=== PATIENT | female | born 1985 | race Caucasian/White ===

== ENCOUNTER → 2019-06-29 | Emergency (ER) | payer MEDICAID ==
[~2019-06-29] VITALS: Ht 167.6 cm; Wt 79.5 kg
[~2019-06-29] MED LIST: ALBU18HF2 INH; CefTRIAXone/D5W-Rocephin 1gm 50 ML IV ONE; DEC4T PO; IBUP-1984 PO; LORA0.5T PO; NO HOME MEDS; PHEN-824 PO; PRED20TA PO; SULF1TAB49 PO; ketorolac tromethamine 15mg/ml inj. IV ONE; normal saline 1000ML IV soln IVB ONE
--- NOTE | 2019-06-29 10:35 | NUR ---
Pt unable to provide urine sample at this time.
[2019-06-29 11:44] LABS: CLARITY,URINE CLOUDY (Clear); COLOR,URINE STRAW (Yellow); GLUCOSE, URINE NEGATIVE (Neg); KETONES,URINE NEGATIVE (Neg); LEUKOCYTE ESTERASE ,URINE NEGATIVE (Neg); NITRITES, URINE POSITIVE (Neg); OCCULT BLOOD,URINE TRACE-LYSED (Neg); PH,URINE 7.5 (4.8-8.0); PROTEIN,URINE NEGATIVE (Neg); UROBILINOGEN,URINE 0.2 E.U/dL (0.2-1.0)
[2019-06-29 11:47] LABS: BASOPHILS % (AUTO) 0.3 % (0-1); EOSINOPHILS # (AUTO) 0.2 X10'3 (0-0.9); HEMATOCRIT 41.2 % (35.0-45.0); HEMOGLOBIN 13.4 g/dl (12.0-16.0); LYMPHOCYTES # (AUTO) 1.4 X10'3 (1.1-4.8); LYMPHOCYTES % (AUTO) 13.1 % (21-51); MEAN CORPUSCULAR HEMOGLOBIN 31.7 PG (27.0-31.0); MEAN CORPUSCULAR HGB CONC 32.6 g/dL (33.0-36.5); MEAN CORPUSCULAR VOLUME 97.2 FL (78-98); MEAN PLATELET VOLUME 7.3 FL (7.4-10.4); MONOCYTES # (AUTO) 0.8 X10'3 (0-0.9); MONOCYTES % (AUTO) 7.5 % (2-12); NEUTROPHILS # (AUTO) 8.3 X10'3 (1.8-7.7); NEUTROPHILS % (AUTO) 77.1 % (42-75); PLATELET COUNT 297 X10'3 (140-440); RED BLOOD COUNT 4.24 X10'6 (4.20-5.60); RED CELL DISTRIBUTION WIDTH 14.1 % (11.5-14.5); WHITE BLOOD COUNT 10.7 X10'3 (4.5-11.0)
[2019-06-29 11:49] LABS: URINE HCG NEGATIVE (NEG)
[2019-06-29 11:51] LABS: URINE AMPHETAMINE SCREEN POSITIVE (Neg); URINE BARBITUATE SCREEN NEGATIVE (Neg); URINE BENZODIAZEPINES SCREEN NEGATIVE (Neg); URINE CANNABINOID SCREEN NEGATIVE (Neg); URINE COCAINE SCREEN NEGATIVE (Neg); URINE METHADONE SCREEN NEGATIVE (Neg); URINE OPIATE SCREEN NEGATIVE (Neg); URINE PHENCYCLIDINE SCREEN NEGATIVE (Neg)
[2019-06-29 11:52] LABS: UA COLLECTION TYPE CLN CATCH MIDSTREAM
[2019-06-29 11:56] LABS: ALANINE AMINOTRANSFERASE 18 U/L (12-78); ALBUMIN 3.5 G/DL (3.4-5.0); ALKALINE PHOSPHATASE 100 IU/L (46-116); ANION GAP 6 (8-16); ASPARTATE AMINO TRANSFERASE 13 U/L (10-37); BILIRUBIN,TOTAL 0.3 MG/DL (0.1-1.0); BLOOD UREA NITROGEN 7 MG/DL (7-18); BUN/CREATININE RATIO 8.8 (6.6-38.0); CALCIUM 8.4 MG/DL (8.5-10.1); CHLORIDE 105 MMOL/L (99-107); GLUCOSE 95 MG/DL (70-104); LIPASE 120 U/L (73-393); POTASSIUM 3.8 MMOL/L (3.5-5.1); SODIUM 140 MMOL/L (135-145); TOTAL CARBON DIOXIDE 28.7 MMOL/L (24-32); TOTAL PROTEIN 6.9 G/DL (6.4-8.2); eGFR 82 ML/MIN
[2019-06-29 11:59] LABS: MUCUS STRANDS MODERATE /LPF (Neg)
[2019-06-29 12:01] LABS: BACTERIA,URINE 4+ /HPF (Neg); RBC,URINE 0-2 /HPF (0-2); SQUAMOUS EPITHELIAL CELL,UR MODERATE /LPF (FEW)
--- NOTE | 2019-06-29 13:27 | NUR ---
Pt's IV access is in the AC and when she bends the arm, the IV fluid infusion stops. Pt's fluid and antibiotics have not completed. Discharge pending upon completion of above medications.
[2019-06-29 13:43] VITALS: BP 145/92
== END | disposition home or self-care (01) ==
LOC: ER 09:58
DX: R51 Headache (principal); N39.0 Urinary tract infection, site not specified; M54.5 Low back pain; F15.90 Other stimulant use, unspecified, uncomplicated; Z88.5 Allergy status to narcotic agent; Z79.899 Other long term (current) drug therapy
CPT/HCPCS: 36415; 80053; 80305; 81001; 81025; 83690; 85025; 87077; 87088; 87186; 96365; 96375; 99284; J0696; J1885; J7030

== ENCOUNTER 2019-09-02 | Emergency (ER) | payer MEDICAID ==
[~2019-09-02] VITALS: Ht 167.6 cm; Wt 79.5 kg
[~2019-09-02] MED LIST changes: -CefTRIAXone/D5W-Rocephin 1gm 50 ML IV ONE; -SULF1TAB49 PO; -ketorolac tromethamine 15mg/ml inj. IV ONE; -normal saline 1000ML IV soln IVB ONE
[2019-09-02 00:49] LABS: EOSINOPHILS # (AUTO) 0.2 X10'3 (0-0.9); HEMOGLOBIN 13.5 g/dl (12.0-16.0); MEAN PLATELET VOLUME 7.4 FL (7.4-10.4); WHITE BLOOD COUNT 8.6 X10'3 (4.5-11.0)
[2019-09-02 00:51] LABS: BASOPHILS % (AUTO) 0.5 % (0-1); EOSINOPHILS % (AUTO) 2.7 % (0-6); HEMATOCRIT 40.6 % (35.0-45.0); LYMPHOCYTES # (AUTO) 1.9 X10'3 (1.1-4.8); LYMPHOCYTES % (AUTO) 22.7 % (21-51); MEAN CORPUSCULAR HEMOGLOBIN 32.1 PG (27.0-31.0); MEAN CORPUSCULAR HGB CONC 33.2 g/dL (33.0-36.5); MEAN CORPUSCULAR VOLUME 96.6 FL (78-98); MONOCYTES # (AUTO) 0.7 X10'3 (0-0.9); NEUTROPHILS # (AUTO) 5.7 X10'3 (1.8-7.7); NEUTROPHILS % (AUTO) 66.1 % (42-75); PLATELET COUNT 272 X10'3 (140-440); RED BLOOD COUNT 4.21 X10'6 (4.20-5.60); RED CELL DISTRIBUTION WIDTH 14.8 % (11.5-14.5)
[2019-09-02 00:55] LABS: CLARITY,URINE SLIGHTLY CLOUDY (Clear); COLOR,URINE YELLOW (Yellow); GLUCOSE, URINE NEGATIVE (Neg); KETONES,URINE NEGATIVE (Neg); LEUKOCYTE ESTERASE ,URINE NEGATIVE (Neg); NITRITES, URINE NEGATIVE (Neg); OCCULT BLOOD,URINE TRACE-LYSED (Neg); PROTEIN,URINE NEGATIVE (Neg); URINE HCG NEGATIVE (NEG); UROBILINOGEN,URINE 0.2 E.U/dL (0.2-1.0)
[2019-09-02 01:01] LABS: UA COLLECTION TYPE CLN CATCH MIDSTREAM; WBC,URINE 0-4 /HPF (0-4)
[2019-09-02 01:02] LABS: BACTERIA,URINE 1+ /HPF (Neg); RBC,URINE 0-2 /HPF (0-2); SQUAMOUS EPITHELIAL CELL,UR MODERATE /LPF (FEW)
[2019-09-02 01:06] LABS: ALANINE AMINOTRANSFERASE 39 U/L (12-78); ALBUMIN 3.5 G/DL (3.4-5.0); ALBUMIN/GLOBULIN RATIO 1.2 (1.1-1.5); ALKALINE PHOSPHATASE 95 IU/L (46-116); ANION GAP 9 (8-16); ASPARTATE AMINO TRANSFERASE 18 U/L (10-37); BILIRUBIN,TOTAL 0.1 MG/DL (0.1-1.0); BLOOD UREA NITROGEN 9 MG/DL (7-18); BUN/CREATININE RATIO 10.2 (6.6-38.0); CALCIUM 8.4 MG/DL (8.5-10.1); CHLORIDE 108 MMOL/L (99-107); CREATININE 0.88 MG/DL (0.40-0.90); GLUCOSE 108 MG/DL (70-104); POTASSIUM 3.8 MMOL/L (3.5-5.1); SODIUM 142 MMOL/L (135-145); TOTAL CARBON DIOXIDE 25.3 MMOL/L (24-32); TOTAL PROTEIN 6.4 G/DL (6.4-8.2); eGFR 73 ML/MIN
[2019-09-02 01:07] LABS: URINE AMPHETAMINE SCREEN POSITIVE (Neg); URINE BARBITUATE SCREEN NEGATIVE (Neg); URINE BENZODIAZEPINES SCREEN NEGATIVE (Neg); URINE CANNABINOID SCREEN NEGATIVE (Neg); URINE COCAINE SCREEN NEGATIVE (Neg); URINE METHADONE SCREEN NEGATIVE (Neg); URINE OPIATE SCREEN NEGATIVE (Neg); URINE PHENCYCLIDINE SCREEN NEGATIVE (Neg)
[2019-09-02 01:13] LABS: ETHANOL < 0.010 GM/DL (0.0-0.010)
[2019-09-02 01:16] LABS: ACETAMINOPHEN < 2.0 UG/ML (10-30)
--- NOTE | 2019-09-02 03:20 | NUR ---
PT ESCORTED TO OVERFLOW ROOM 20. PT APPEARS ASLEEP ON RIGHT SIDE NO S/S RESPIRATORY DISTRESS RESPIRATIONS EVEN AND UNLABORED AT THIS TIME. WILL CONTINUE TO MONITOR.
--- NOTE | 2019-09-02 04:42 | NUR ---
PT APPEARS ASLEEP ON RIGHT SIDE NO S/S RESPIRATORY DISTRESS. RESPIRATIONS EVEN AND UNLABORED AT THIS TIME.
--- NOTE | 2019-09-02 05:47 | NUR ---
PACKET FAXED TO [facility]
--- NOTE | 2019-09-02 05:50 | NUR ---
Pt refused morning vitals. Pt appears to be sleeping peacefully, no s/s respiratory distress, lying on back.
--- NOTE | 2019-09-02 06:41 | NUR ---
Patient sleeping supine in bed. Respirations are even and unlabored.
--- NOTE | 2019-09-02 08:28 | NUR ---
Patient is sleeping on his left side. No S/S of distress noted.
--- NOTE | 2019-09-02 10:00 | NUR ---
[facility] evaluating patient.
--- NOTE | 2019-09-02 10:02 | NUR ---
Patient writing letters to her family. Remains hyperverbal.
--- NOTE | 2019-09-02 10:54 | NUR ---
Patient up to the restroom
--- NOTE | 2019-09-02 11:26 | NUR ---
Patient upset that she is on 5150, crying. Pt. states that her friend is keeping her dog and her belongings from her. Patient crying and stating that she was going to leave, security on standby.
[2019-09-02] MEDS: nicotine 21mg patch - 24 hr TD SCH (12:02)
[2019-09-02] MEDS ORDERED: LORazepam 0.5 MG tablet PO ONE (12:20)
--- NOTE | 2019-09-02 13:49 | NUR ---
MOTHER KOMAL PERALES [phone]. DAD IS [phone]
--- NOTE | 2019-09-02 14:19 | NUR ---
Patient is resting in bed with eyes closed. Respirations are even and unlabored.
--- NOTE | 2019-09-02 15:40 | NUR ---
pt resting in bed quietly ,primary nurse on lunch break,no distress noted .will cont to goran.
--- NOTE | 2019-09-02 17:17 | NUR ---
Patient is resting in bed with eyes closed. No s/s of distress.
--- NOTE | 2019-09-02 17:44 | NUR ---
Patient up to the bathroom.
--- NOTE | 2019-09-03 00:32 | NUR ---
Breaking Primary RN, Pt. resting quietly on back, respirations WNL, no signs of distress.
--- NOTE | 2019-09-03 00:38 | NUR ---
patient in bed covers on supine eyes closed rr even un labored no observable s/s of acute stress at this time will continue to monitor
--- NOTE | 2019-09-03 02:30 | NUR ---
PATIENT IN BED ON RIGHT SIDE COVERS ON EYES CLOSED RR EVEN UN LABORED NO OBSERVABLE S/S OF ACUTE STRESS AT THIS TIME WILL CONTINUE TOP MONITOR
--- NOTE | 2019-09-03 04:30 | NUR ---
PATIENT CHANGED POSITIONS IN BED ON RIGHT SIDE COVERS ON EYES CLOSED RR EVEN UN LABORED NO OBSERVABLE S/S OF ACUTE STRESS AT THIS TIME WILL CONTINUE TO MONITOR
--- NOTE | 2019-09-03 04:32 | NUR ---
PATIENT STILL IN BED ON LEFT SIDE COVERS ON EYES CLOSED RR EVEN UN LABORED NO OBSERVABLE S/S OF ACUTE STRESS AT THIS TIME WILL CONTINUE TO MONITOR
[2019-09-03 05:45] VITALS: BP 132/75
--- NOTE | 2019-09-03 05:48 | NUR ---
PATIENT HAS AWOKEN WITH A "BAD TOOTH ACHE ." RECIEVED A PRN order for tylenol q 6hrs FROM
[2019-09-03] MEDS ORDERED: acetaminophen 325mg tablet PO PRN (05:50)
--- NOTE | 2019-09-03 06:30 | NUR ---
PT IS SLEEPING
--- NOTE | 2019-09-03 07:30 | NUR ---
PT IS SLEEPING
--- NOTE | 2019-09-03 08:44 | NUR ---
PT IS SLEEPING
--- NOTE | 2019-09-03 09:30 | NUR ---
PT AWAKE EATING BREAKFAST
--- NOTE | 2019-09-03 10:15 | NUR ---
PT WAS ON THE PHONE WITH HER MOTHER. CONVERSATION GOT HEATED
[2019-09-03] MEDS: nicotine 21mg patch - 24 hr TD SCH (11:45)
--- NOTE | 2019-09-03 11:57 | NUR ---
PT IS SLEEPING
[2019-09-03] MEDS ORDERED: nicotine 21mg patch - 24 hr TD ONE (12:20)
--- NOTE | 2019-09-03 12:30 | NUR ---
pt is eating lunch and talking on the phone to a friend
--- NOTE | 2019-09-03 13:30 | NUR ---
pt states she has a past issue with one of the security guards at [facility] and is requesting not to be transferred there. she said she would be "fearing for her life" if she was to under his care. pt would not provide a name or details. [facility] is aware
--- NOTE | 2019-09-03 14:39 | NUR ---
pt states not to give her mom any information regarding her care
--- NOTE | 2019-09-03 15:30 | NUR ---
pt is sitting in her bed talking on the phone
--- NOTE | 2019-09-03 16:30 | NUR ---
pt is awake. laying in her bed
--- NOTE | 2019-09-03 17:31 | NUR ---
pt is awake. laying in her bed
== END 2019-09-03 17:50 ==
LOC: ER 00:01
DX: S51.812A Laceration without foreign body of left forearm, initial encounter (principal); F15.10 Other stimulant abuse, uncomplicated; F32.9 Major depressive disorder, single episode, unspecified; Z88.5 Allergy status to narcotic agent; Z79.899 Other long term (current) drug therapy; W45.8XXA Other foreign body or object entering through skin, initial encounter; Y93.89 Activity, other specified; Y92.89 Other specified places as the place of occurrence of the external cause; Y99.8 Other external cause status
CPT/HCPCS: 36415; 80053; 80305; 80320; 80329; 81001; 81025; 84443; 85025; 99285

== ENCOUNTER 2020-11-04 01:15 | Emergency (ER) | payer MEDICAID ==
[~2020-11-04] VITALS: Ht 167.6 cm; Wt 80.5 kg
[~2020-11-04 01:15] MED LIST changes: -ALBU18HF2 INH; -DEC4T PO; -IBUP-1984 PO; -LORA0.5T PO; -PHEN-824 PO; -PRED20TA PO
[2020-11-04 01:26] VITALS: BP 161/105
== END 2020-11-04 04:01 | disposition left against medical advice (07) ==
LOC: ER 01:16
DX: R21 Rash and other nonspecific skin eruption (principal); Z53.21 Procedure and treatment not carried out due to patient leaving prior to being seen by health care provider

== ENCOUNTER 2021-01-20 16:06 | Emergency (ER) | payer MEDICAID ==
[~2021-01-20] VITALS: Ht 167.6 cm; Wt 81.8 kg
[2021-01-20 16:15] VITALS: BP 125/95
[2021-01-20] MEDS ORDERED: AMOX-422 PO (16:21)
[2021-01-20] MEDS ORDERED: HYDR-3972 PO (16:21)
== END 2021-01-20 16:29 | disposition home or self-care (01) ==
LOC: ER 16:06
DX: K04.7 Periapical abscess without sinus (principal); K08.89 Other specified disorders of teeth and supporting structures; F15.90 Other stimulant use, unspecified, uncomplicated; Z88.5 Allergy status to narcotic agent
CPT/HCPCS: 99283

== ENCOUNTER 2021-04-25 12:06 | Emergency (ER) | payer MEDICAID ==
[~2021-04-25] VITALS: Ht 167.6 cm; Wt 72.7 kg
[2021-04-25] MEDS ORDERED: normal saline 1000ml 1,000 ML IV ONE (12:25)
[2021-04-25] MEDS ORDERED: ketorolac trometh. 30mg/ml inj. IV ONE (12:30)
[2021-04-25] MEDS ORDERED: ondansetron/PF 4mg/2ml inj IV ONE (12:30)
[2021-04-25] MEDS ORDERED: CefTRIAXone/D5W-Rocephin 1gm 50 ML IV ONE (12:30)
[2021-04-25 12:34] LABS: BASOPHILS % (AUTO) 0.2 % (0-1); EOSINOPHILS % (AUTO) 0.9 % (0-6); HEMATOCRIT 40.5 % (35.0-45.0); HEMOGLOBIN 13.8 g/dl (12.0-16.0); LYMPHOCYTES # (AUTO) 0.4 X10'3 (1.1-4.8); LYMPHOCYTES % (AUTO) 7.9 % (21-51); MEAN CORPUSCULAR HEMOGLOBIN 32.2 PG (27.0-31.0); MEAN CORPUSCULAR HGB CONC 34.2 g/dL (33.0-36.5); MEAN CORPUSCULAR VOLUME 94.3 FL (78-98); MONOCYTES # (AUTO) 0.3 X10'3 (0-0.9); MONOCYTES % (AUTO) 5.6 % (2-12); NEUTROPHILS # (AUTO) 4.4 X10'3 (1.8-7.7); NEUTROPHILS % (AUTO) 85.4 % (42-75); PLATELET COUNT 275 X10'3 (140-440); RED BLOOD COUNT 4.29 X10'6 (4.20-5.60); RED CELL DISTRIBUTION WIDTH 14.2 % (11.5-14.5); WHITE BLOOD COUNT 5.1 X10'3 (4.5-11.0)
[2021-04-25] MEDS ORDERED: fentaNYL/PF 50MCG/1 ML 2ML syringe IV ONE (12:35)
[2021-04-25 12:48] LABS: ALANINE AMINOTRANSFERASE 16 U/L (12-78); ALBUMIN 3.3 G/DL (3.4-5.0); ALBUMIN/GLOBULIN RATIO 0.9 (1.1-1.5); ALKALINE PHOSPHATASE 74 IU/L (46-116); ANION GAP 8 (8-16); ASPARTATE AMINO TRANSFERASE 9 U/L (10-37); BILIRUBIN,TOTAL 0.4 MG/DL (0.1-1.0); BLOOD UREA NITROGEN 15 MG/DL (7-18); CALCIUM 7.9 MG/DL (8.5-10.1); CHLORIDE 105 MMOL/L (99-107); CREATININE 0.75 MG/DL (0.40-0.90); GLUCOSE 102 MG/DL (70-104); LIPASE 60 U/L (73-393); POTASSIUM 3.4 MMOL/L (3.5-5.1); SODIUM 137 MMOL/L (135-145); TOTAL CARBON DIOXIDE 24.3 MMOL/L (24-32); TOTAL PROTEIN 6.8 G/DL (6.4-8.2); eGFR 87 ML/MIN
[2021-04-25 13:03] LABS: CLARITY,URINE SLIGHTLY CLOUDY (Clear); COLOR,URINE YELLOW (Yellow); GLUCOSE, URINE NEGATIVE (Neg); KETONES,URINE NEGATIVE (Neg); LEUKOCYTE ESTERASE ,URINE NEGATIVE (Neg); NITRITES, URINE NEGATIVE (Neg); OCCULT BLOOD,URINE NEGATIVE (Neg); PROTEIN,URINE NEGATIVE (Neg)
[2021-04-25 13:09] LABS: UA COLLECTION TYPE NON-SPECIFIED
[2021-04-25 13:10] LABS: MUCUS STRANDS MODERATE /LPF (Neg); SQUAMOUS EPITHELIAL CELL,UR MODERATE /LPF (FEW)
[2021-04-25 13:11] LABS: HYALINE CASTS 0-3 /LPF (NEGATIVE)
[2021-04-25 13:12] LABS: BACTERIA,URINE 1+ /HPF (Neg); RBC,URINE 0-2 /HPF (0-2); WBC,URINE 0-4 /HPF (0-4)
[2021-04-25 13:19] LABS: URINE AMPHETAMINE SCREEN POSITIVE (Neg); URINE BARBITUATE SCREEN NEGATIVE (Neg); URINE BENZODIAZEPINES SCREEN NEGATIVE (Neg); URINE CANNABINOID SCREEN NEGATIVE (Neg); URINE COCAINE SCREEN NEGATIVE (Neg); URINE METHADONE SCREEN NEGATIVE (Neg); URINE OPIATE SCREEN NEGATIVE (Neg); URINE PHENCYCLIDINE SCREEN NEGATIVE (Neg)
[2021-04-25 13:24] LABS: URINE HCG NEGATIVE (NEG)
[2021-04-25 14:46] VITALS: BP 148/89
== END 2021-04-25 15:08 | disposition home or self-care (01) ==
LOC: ER 12:06
DX: R10.84 Generalized abdominal pain (principal); R11.2 Nausea with vomiting, unspecified; R50.9 Fever, unspecified; F15.10 Other stimulant abuse, uncomplicated; Z88.5 Allergy status to narcotic agent
CPT/HCPCS: 36415; 74176; 80053; 80305; 81001; 81025; 83605; 83690; 84145; 85025; 87040; 96365; 96375; 99284; J0696; J1885; J2405; J3010; J7030

== ENCOUNTER 2021-06-19 00:42 | Emergency (ER) | payer MEDICAID ==
[~2021-06-19] VITALS: Ht 167.6 cm; Wt 77.3 kg
[2021-06-19] MEDS ORDERED: ibuprofen 200mg tablet PO ONE (03:40)
[2021-06-19] MEDS ORDERED: cephalexin 500mg capsule PO ONE ×2 (04:15→04:35)
[2021-06-19] MEDS ORDERED: CEPH-585 PO (04:16)
[2021-06-19 05:15] VITALS: BP 146/86
== END 2021-06-19 05:16 | disposition home or self-care (01) ==
LOC: ER 00:42
DX: L03.113 Cellulitis of right upper limb (principal); M79.601 Pain in right arm; F17.200 Nicotine dependence, unspecified, uncomplicated; I10 Essential (primary) hypertension; F15.90 Other stimulant use, unspecified, uncomplicated; Z87.440 Personal history of urinary (tract) infections; Z88.5 Allergy status to narcotic agent
CPT/HCPCS: 99283

== ENCOUNTER 2021-07-27 05:21 | Emergency (ER) | payer MEDICAID ==
[~2021-07-27] VITALS: Ht 167.6 cm; Wt 78.2 kg
[~2021-07-27 05:21] MED LIST changes: +CEPH-585 PO
[2021-07-27 05:47] VITALS: BP 157/99
== END 2021-07-27 08:37 | disposition left against medical advice (07) ==
LOC: ER 05:22
DX: R21 Rash and other nonspecific skin eruption (principal); Z53.21 Procedure and treatment not carried out due to patient leaving prior to being seen by health care provider

== ENCOUNTER 2021-11-11 07:52 | Emergency (ER) | payer MEDICAID ==
[~2021-11-11] VITALS: Ht 167.6 cm; Wt 77.3 kg
[2021-11-11 07:57] VITALS: BP 158/98
[2021-11-11] MEDS ORDERED: penicillin V potassium 250mg/5ml oral suspension PO ONE ×2 (08:15→08:45)
[2021-11-11] MEDS ORDERED: naproxen 500mg tablet PO ONE (08:15)
[2021-11-11] MEDS ORDERED: BUPIVAcaine 0.5% inj/PF 30 ml vial IJ ONE (08:20)
[2021-11-11] MEDS ORDERED: PENI-88 PO (08:21)
[2021-11-11] MEDS ORDERED: NAPR-56 PO (08:21)
== END 2021-11-11 10:22 | disposition home or self-care (01) ==
LOC: ER 07:53
DX: K02.9 Dental caries, unspecified (principal); S02.5XXA Fracture of tooth (traumatic), initial encounter for closed fracture; K04.7 Periapical abscess without sinus; I10 Essential (primary) hypertension; F15.20 Other stimulant dependence, uncomplicated; Z88.5 Allergy status to narcotic agent; X58.XXXA Exposure to other specified factors, initial encounter; Y93.89 Activity, other specified; Y92.89 Other specified places as the place of occurrence of the external cause; Y99.8 Other external cause status
CPT/HCPCS: 41800; 99284

== ENCOUNTER 2022-01-26 21:31 | Emergency (ER) | payer MEDICAID ==
[~2022-01-26] VITALS: Ht 165.1 cm; Wt 75.0 kg
[~2022-01-26 21:31] MED LIST changes: +NAPR-56 PO
[2022-01-26 21:46] VITALS: BP 136/87
== END 2022-01-26 22:13 | disposition left against medical advice (07) ==
LOC: ER 21:31
DX: R11.2 Nausea with vomiting, unspecified (principal); Z53.21 Procedure and treatment not carried out due to patient leaving prior to being seen by health care provider

== ENCOUNTER 2022-03-23 12:07 | Emergency (ER) | payer MEDICAID ==
[~2022-03-23] VITALS: Ht 167.6 cm; Wt 77.3 kg
[2022-03-23 12:57] VITALS: BP 162/90
== END 2022-03-23 18:27 | disposition left against medical advice (07) ==
LOC: ER 12:07
DX: R07.9 Chest pain, unspecified (principal); Z53.21 Procedure and treatment not carried out due to patient leaving prior to being seen by health care provider
CPT/HCPCS: 93005

== ENCOUNTER 2022-08-27 11:52 | Emergency (ER) | payer MEDICAID ==
[~2022-08-27] VITALS: Ht 170.2 cm; Wt 68.6 kg
[~2022-08-27 11:52] MED LIST changes: -CEPH-585 PO
[2022-08-27 12:02] VITALS: BP 152/87
== END 2022-08-27 14:27 | disposition left against medical advice (07) ==
LOC: ER 11:53
DX: M79.672 Pain in left foot (principal); Z53.21 Procedure and treatment not carried out due to patient leaving prior to being seen by health care provider
CPT/HCPCS: 99281

== ENCOUNTER 2022-10-31 23:10 | Emergency (ER) | payer MEDICAID ==
[~2022-10-31] VITALS: Ht 167.6 cm; Wt 80.0 kg
[2022-10-31 23:27] VITALS: BP 155/79; PULSE 94; RESP 16; TEMP 97.8; O2SAT 99
--- NOTE | 2022-11-01 01:57 | NUR ---
PT SEEN WALKING OUT OF THE ER BY STAFF. INFORMED
== END 2022-11-01 04:22 | disposition left against medical advice (07) ==
LOC: ER 23:11
DX: S80.922A Unspecified superficial injury of left lower leg, initial encounter (principal); S80.921A Unspecified superficial injury of right lower leg, initial encounter; Z53.21 Procedure and treatment not carried out due to patient leaving prior to being seen by health care provider; X58.XXXA Exposure to other specified factors, initial encounter; Y93.89 Activity, other specified; Y92.89 Other specified places as the place of occurrence of the external cause; Y99.8 Other external cause status
CPT/HCPCS: 99281

== ENCOUNTER 2023-04-16 00:12 | Emergency (ER) | payer MEDICAID ==
[~2023-04-16] VITALS: Ht 167.6 cm; Wt 77.3 kg
[2023-04-16 01:09] LABS: MEAN PLATELET VOLUME 6.4 FL (7.4-10.4)
[2023-04-16 01:10] LABS: BASOPHILS % (AUTO) 0.4 % (0-1); EOSINOPHILS # (AUTO) 0.1 X10'3 (0-0.9); HEMOGLOBIN 12.2 g/dl (12.0-16.0); LYMPHOCYTES # (AUTO) 1.4 X10'3 (1.1-4.8); LYMPHOCYTES % (AUTO) 12.8 % (21-51); MEAN CORPUSCULAR HEMOGLOBIN 30.4 PG (27.0-31.0); MEAN CORPUSCULAR HGB CONC 32.8 g/dL (33.0-36.5); MEAN CORPUSCULAR VOLUME 92.5 FL (78-98); MONOCYTES # (AUTO) 0.9 X10'3 (0-0.9); MONOCYTES % (AUTO) 8.1 % (2-12); NEUTROPHILS # (AUTO) 8.3 X10'3 (1.8-7.7); NEUTROPHILS % (AUTO) 77.7 % (42-75); PLATELET COUNT 433 X10'3 (140-440); RED CELL DISTRIBUTION WIDTH 14.7 % (11.5-14.5); WHITE BLOOD COUNT 10.7 X10'3 (4.5-11.0)
[2023-04-16 01:18] LABS: ALBUMIN 2.6 G/DL (3.4-5.0); ANION GAP 5 (8-16); BLOOD UREA NITROGEN 9 MG/DL (7-18); CHLORIDE 100 MMOL/L (99-107); CREATININE 0.69 MG/DL (0.40-0.90); GLUCOSE 100 MG/DL (70-104); POTASSIUM 3.7 MMOL/L (3.5-5.1); SODIUM 133 MMOL/L (135-145); TOTAL CARBON DIOXIDE 28.1 MMOL/L (24-32); eCRCL 102 ML/MIN; eGFR > 90 ML/MIN
[2023-04-16 01:19] LABS: LIPASE 39 U/L (16-77)
[2023-04-16 04:20] LABS: BILIRUBIN,URINE NEGATIVE (Neg); CLARITY,URINE CLOUDY (Clear); COLOR,URINE YELLOW (Yellow); GLUCOSE, URINE NEGATIVE (Neg); KETONES,URINE NEGATIVE (Neg); LEUKOCYTE ESTERASE ,URINE TRACE (Neg); OCCULT BLOOD,URINE NEGATIVE (Neg); PH,URINE 5.5 (4.8-8.0); PROTEIN,URINE TRACE mg/dl (Neg); URINE HCG NEGATIVE (NEG); UROBILINOGEN,URINE 0.2 E.U/dL (0.2-1.0)
[2023-04-16 04:22] LABS: NITRITES, URINE NEGATIVE (Neg); UA COLLECTION TYPE CLN CATCH MIDSTREAM
[2023-04-16 04:30] LABS: MUCUS STRANDS MANY /LPF (Neg); SQUAMOUS EPITHELIAL CELL,UR MANY /LPF (FEW); TRANSITIONAL EPI CELLS,URINE FEW /HPF; WBC,URINE 30-50 /HPF (0-4)
[2023-04-16 04:32] LABS: BACTERIA,URINE 3+ /HPF (Neg)
[2023-04-16] MEDS ORDERED: AMOX-115 PO (05:53)
[2023-04-16] MEDS ORDERED: ONDA8TAB13 PO (05:53)
[2023-04-16] MEDS ORDERED: amox tr/potassium clavulanate 875/125mg TAB PO ONE (05:55)
[2023-04-16] MEDS ORDERED: ondansetron 4mg rapidly disintigrating tab PO ONE (05:55)
[2023-04-16 06:04] VITALS: BP 132/77; PULSE 87; RESP 16; TEMP 98.1; O2SAT 98
== END 2023-04-16 06:07 | disposition home or self-care (01) ==
LOC: ER 00:13
DX: K52.89 Other specified noninfective gastroenteritis and colitis (principal); N39.0 Urinary tract infection, site not specified; F17.200 Nicotine dependence, unspecified, uncomplicated; F12.10 Cannabis abuse, uncomplicated; F15.10 Other stimulant abuse, uncomplicated; I10 Essential (primary) hypertension; Z88.5 Allergy status to narcotic agent; Z79.899 Other long term (current) drug therapy
CPT/HCPCS: 74176; 80048; 81001; 81025; 83690; 85025; 99285